=== PATIENT | female | born 1980 | race Caucasian/White ===

== ENCOUNTER 2020-05-25 05:30 | Day surgery (SDC) | payer BC ==
[2020-05-22 10:30] LABS: HEMOGLOBIN 14.3 g/dL (12.0-15.5); MEAN CORPUSCULAR HEMOGLOBIN 30.9 pg (27.0-33.4); MEAN CORPUSCULAR HGB CONC 34.9 g/dL (32.0-36.0); MEAN CORPUSCULAR VOLUME 88 fl (80-97); PLATELET COUNT 246 10^3/uL (150-450); RED BLOOD COUNT 4.64 10^6/uL (3.72-5.28); RED CELL DISTRIBUTION WIDTH 12.8 % (11.5-14.0); WHITE BLOOD COUNT 5.8 10^3/uL (4.0-10.5)
[2020-05-22 10:53] LABS: ANION GAP 7 (5-19); BLOOD UREA NITROGEN 16 mg/dL (7-20); CALCIUM 9.7 mg/dL (8.4-10.2); CARBON DIOXIDE 28 mmol/L (22-30); CHLORIDE 104 mmol/L (98-107); GLUCOSE 75 mg/dL (75-110); POTASSIUM 4.8 mmol/L (3.6-5.0)
[~2020-05-25 05:30] MED LIST: ACETAMINOPHEN 325 MG TABLET PO PRN; CEFAZOLIN 2 GM/D5W RTU 2 GM/50 ML RTUPB IV PRN; CELECOXIB 200 MG CAPSULE PO PRN; GABAPENTIN 100 MG CAPSULE PO PRN; LACTATED RINGERS 1000 ML IV PRN; LIDOCAINE 0.5% INJ-PF (5 MG/ML) 50 ML SDV SUBCUT PRN; ONDANSETRON HCL INJ/PF 4 MG/2 ML SDV IV PRN; OXYCODONE HCL SR 10 MG TABLET PO PRN; SCOPOLAMINE HYDROBROMIDE 1.5 MG PATCH.TD72 TD PRN; TRAMADOL HCL 50 MG TABLET PO PRN; TRANEXAMIC ACID INJ/PF 1,000 MG/10 ML SDV IV PRN; VANCOMYCIN HCL 1,000 MG in DEXTROSE 5%-WATER 250 ML IV PRN
[2020-05-25] MEDS ORDERED: ACETAMINOPHEN 325 MG TABLET ONE (06:19)
[2020-05-25] MEDS ORDERED: SCOPOLAMINE HYDROBROMIDE 1.5 MG PATCH.TD72 ONE (06:19)
[2020-05-25] MEDS ORDERED: CEFAZOLIN 2 GM/D5W RTU 2 GM/50 ML RTUPB IV ONE (06:19)
[2020-05-25] MEDS ORDERED: TRAMADOL HCL 50 MG TABLET ONE (06:19)
[2020-05-25] MEDS ORDERED: ONDANSETRON HCL INJ/PF 4 MG/2 ML SDV ONE ×2 (06:19→06:59)
[2020-05-25] MEDS ORDERED: CELECOXIB 200 MG CAPSULE ONE (06:19)
[2020-05-25] MEDS ORDERED: GABAPENTIN 100 MG CAPSULE ONE (06:20)
[2020-05-25] MEDS ORDERED: LIDOCAINE 2% INJ-PF (20 MG/ML) 10 ML AMPUL ONE (06:58)
[2020-05-25] MEDS ORDERED: MIDAZOLAM 2 MG/2 ML INJ ONE (06:59)
[2020-05-25] MEDS ORDERED: FENTANYL CITRATE INJ/PF 100 MCG/2 ML AMPUL ONE (06:59)
[2020-05-25] MEDS ORDERED: TRANEXAMIC ACID INJ/PF 1,000 MG/10 ML SDV ONE (06:59)
[2020-05-25] MEDS ORDERED: PROPOFOL INJ 200 MG/20 ML VIAL IV ONE (06:59)
[2020-05-25] MEDS ORDERED: LIDOCAINE 1% INJ-PF (10 MG/ML) 30 ML SDV ONE (07:09)
[2020-05-25] MEDS ORDERED: BUPIVACAINE HCL 0.25 % INJ/PF (2.5 MG/1 ML) 30 ML VIAL ONE (07:09)
[2020-05-25] MEDS ORDERED: VANCOMYCIN HCL INJ 1000 MG VIAL ONE (07:09)
[2020-05-25] MEDS ORDERED: KETOROLAC TROMETHAMINE INJ/PF 30 MG/1 ML SDV ONE (07:09)
[2020-05-25] MEDS ORDERED: OXYCODONE HCL SR 10 MG TABLET PO ONE (07:19)
[2020-05-25] MEDS ORDERED: DIPHENHYDRAMINE HCL 50 MG/ML VIAL IV PRN (08:04)
[2020-05-25] MEDS ORDERED: MEPERIDINE HCL/PF INJ 25 MG/1 ML DISP.SYRIN IV PRN (08:04)
[2020-05-25] MEDS ORDERED: PROMETHAZINE HCL INJ 25 MG/1 ML VIAL IV PRN ×2 (08:04)
[2020-05-25] MEDS ORDERED: FENTANYL CITRATE INJ/PF 100 MCG/2 ML AMPUL IV PRN ×3 (08:04)
[2020-05-25] MEDS ORDERED: OXYCODONE-ACETAMINOPHEN 5-325 MG TABLET PO PRN ×2 (08:04)
[2020-05-25] MEDS ORDERED: MORPHINE SULFATE 10 MG/ML INJ IV PRN ×2 (08:04→10:25)
[2020-05-25] MEDS ORDERED: VASOPRESSIN INJ 20 UNIT/1 ML VIAL ONE (09:06)
[2020-05-25] MEDS ORDERED: ALBUMIN HUMAN 12.5 GM/50 ML RTUINJ IV ONE (09:45)
--- NOTE | 2020-05-25 09:57 | Operative Report ---
Operative Report DATE OF SURGERY: 05/25/20 PREOPERATIVE DIAGNOSIS: Left hip severe primary osteoarthritis POSTOPERATIVE DIAGNOSIS: Left hip severe primary osteoarthritis OPERATION: Left total hip arthroplasty SURGEON: SAWYER MIXON JR ANESTHESIA: Spinal COMPLICATIONS: none ESTIMATED BLOOD LOSS: 400 PROCEDURE: Implants: [place] Accolade size 5 femoral stem with a 27 offset, a PSL size 50 cup, and a standard liner, a -2.5 neck length the 36 mm ceramic head BRIEF HISTORY: 39 year old female with severe degenerative arthritis of left hip, which has failed conservative treatment and has elected for a total hip arthroplasty. Risks include but are not limited to bleeding, infection, anesthesia, , injury to nerve or vessel, pain, scar, leg length inequality, dislocation, future surgery, and blood clots. Patient read through the pre-op counseling form and signed and consented for surgery on their left hip. OPERATIVE PROCEDURE: Patient was brought to the operating room on and underwent spinal anesthesia. 2 grams of Ancef and 1 g of vancomycin was given. After proper anesthesia was obtained, patient was positioned, padded, prepped, and draped in the usual sterile fashion on the operating room table. Appropriate time out was performed. An anterior approach to the hip was undertaken with meticulous hemostasis through the deep interval. A capsulectomy was performed followed by exposure of the femoral neck. The femoral neck was cut in line with the femoral broach and the femoral head was removed. The acetabulum was then exposed with three retractors in an atraumatic fashion. Soft tissue and osteophytes were removed. Medialization reaming was performed followed by anatomic reaming up to accept a 50 mm acetabulum. Wound was irrigated with dilute betadyne solution and the 50 mm acetabulum was impacted into correct position and stability checked by manipulating the impaction handle which rocked the pelvis. A standard liner was impacted into the shell with good stability. Potential impinging osteophytes were removed. Attention was then directed toward the femur, which was exposed with two retractors in an atraumatic fashion. A bone hook was placed to carefully perform releases along the superior capsule until the femur was safely delivered through the wound. A safe deposit box rental clerk was utilized followed by lateralization rasping and then broaching up to accept a 5 femur. With a 27 offset neck and a -2.5 head, stability was good in flexion and extension with near equal leg lengths. The real lateral offset femur was impacted into a copiously irrigated femoral canal. A 36 mm -2.5 head was impacted on a clean dry femoral taper. The hip was irrigated and reduced, further irrigation with antibiotic solution, betadine solution, then antibiotic solution. Bleeders were coagulated with bovie cautery. The fascia was then closed with number 2 Quill; the subcutaneous tissue closed with interrupted inverted 2-0 monocryl then running 2-0 monocryl subcuticular. Dermabond skin glue was applied followed by a silver dressing. All needle sponge and instrument counts were correct. Patient was awakened from sedation anesthesia and taken to recovery room in good condition. Thank you, Sawyer Mixon, DO
[2020-05-25] MEDS: FENTANYL CITRATE INJ/PF 100 MCG/2 ML AMPUL ONE ×3 (10:10→10:45)
[2020-05-25] MEDS ORDERED: OXYCODONE HCL IR 5 MG TABLET PO PRN ×2 (10:24)
[2020-05-25] MEDS ORDERED: TRAMADOL HCL 50 MG TABLET PO PRN (10:25)
[2020-05-25] MEDS ORDERED: PANTOPRAZOLE SODIUM 20 MG TABLET.DR PO PRN (10:31)
[2020-05-25] MEDS ORDERED: DIPHENHYDRAMINE HCL 25 MG CAPSULE PO PRN (10:31)
[2020-05-25] MEDS ORDERED: ZOLPIDEM TARTRATE 5 MG TABLET PO PRN (10:32)
[2020-05-25] MEDS ORDERED: DOCUSATE SODIUM 100 MG CAPSULE PO PRN (10:34)
[2020-05-25] MEDS ORDERED: ONDANSETRON 4 MG TAB.RAPDIS PO PRN (10:38)
--- NOTE | 2020-05-25 11:11 | RADIOLOGY REPORT (SQ) ---
EXAM DESCRIPTION: HIP LEFT AP/LATERAL IMAGES COMPLETED DATE/TIME: 05/25/2020 10:53 am REASON FOR STUDY: s/p left total hip M16.12 UNILATERAL PRIMARY OSTEOARTHRITIS, LEFT HIP COMPARISON: None. NUMBER OF VIEWS: Two view(s). TECHNIQUE: Digital radiographic images of the left hip post-procedure. LIMITATIONS: None. FINDINGS: BONES: No worrisome or unexpected findings post-procedure. DEVICE: Total hip replacement. Components of the device in appropriate location. SOFT TISSUES: No worrisome findings. Expected postoperative soft tissue changes. IMPRESSION: SATISFACTORY POSTOPERATIVE LEFT HIP. TECHNICAL DOCUMENTATION: JOB ID: [id number] 2010 [employer]- All Rights Reserved Reading location - IP/workstation name: [email or web address]
[2020-05-25 11:13] LABS: HEMATOCRIT 31.1 % (36.0-47.0); HEMOGLOBIN 10.8 g/dL (12.0-15.5); MEAN CORPUSCULAR HEMOGLOBIN 30.6 pg (27.0-33.4); MEAN CORPUSCULAR HGB CONC 34.6 g/dL (32.0-36.0); MEAN CORPUSCULAR VOLUME 89 fl (80-97); PLATELET COUNT 220 10^3/uL (150-450); RED BLOOD COUNT 3.51 10^6/uL (3.72-5.28); RED CELL DISTRIBUTION WIDTH 12.6 % (11.5-14.0)
[2020-05-25] MEDS ORDERED: NORMAL SALINE 1000 ML 1,000 ML IV ONE (11:30)
--- NOTE | 2020-05-25 12:08 | RADIOLOGY REPORT (SQ) ---
EXAM DESCRIPTION: NO CHG FLUORO; HIP IN OPERATING RM IMAGES COMPLETED DATE/TIME: 05/25/2020 9:58 am REASON FOR STUDY: LEFT TOTAL HIP ARTHROPLASTY ASSISTED WITH FLUORO IN OR COMPARISON: None. FLUOROSCOPY TIME: 0.1 minutes 4 Images saved to PACS LIMITATIONS: None. PROCEDURE: Left total hip arthroplasty. FINDINGS: Images from fluoro document the procedure. IMPRESSION: Left total hip arthroplasty. Refer to operative note for further information. COMMENT: PQRS 6045F: Fluoroscopy time of the procedure is documented in the report. TECHNICAL DOCUMENTATION: JOB ID: [id number] 2010 [employer] All Rights Reserved Reading location - IP/workstation name: [email or web address]
--- NOTE | 2020-05-25 12:08 | RADIOLOGY REPORT (SQ) ---
EXAM DESCRIPTION: NO CHG FLUORO; HIP IN OPERATING RM IMAGES COMPLETED DATE/TIME: 05/25/2020 9:58 am REASON FOR STUDY: LEFT TOTAL HIP ARTHROPLASTY ASSISTED WITH FLUORO IN OR COMPARISON: None. FLUOROSCOPY TIME: 0.1 minutes 4 Images saved to PACS LIMITATIONS: None. PROCEDURE: Left total hip arthroplasty. FINDINGS: Images from fluoro document the procedure. IMPRESSION: Left total hip arthroplasty. Refer to operative note for further information. COMMENT: PQRS 6045F: Fluoroscopy time of the procedure is documented in the report. TECHNICAL DOCUMENTATION: JOB ID: [id number] 2010 [employer]- All Rights Reserved Reading location - IP/workstation name: [email or web address]
[2020-05-25] MEDS ORDERED: CEFAZOLIN 2 GM/D5W RTU 2 GM/50 ML RTUPB IV SCH (14:00)
[2020-05-25] MEDS ORDERED: KETOROLAC TROMETHAMINE INJ/PF 30 MG/1 ML SDV IV SCH (14:00)
[2020-05-25] MEDS ORDERED: ACETAMINOPHEN 325 MG TABLET PO SCH (14:00)
[2020-05-25] MEDS ORDERED: PHENYLEPHRINE HCL INJ/PF 10 MG/1 ML SDV ONE (14:36)
[2020-05-25 16:22] VITALS: BP 90/48
[2020-05-25] MEDS: ALBUMIN HUMAN 12.5 GM/50 ML RTUINJ IV SCH (16:54)
[2020-05-25] MEDS ORDERED: GABAPENTIN 100 MG CAPSULE PO SCH (18:00)
[2020-05-26] MEDS ORDERED: CELECOXIB 200 MG CAPSULE PO SCH (10:00)
[2020-05-26] MEDS ORDERED: DULOXETINE HCL 40 MG PO SCH (10:00)
[2020-05-26] MEDS ORDERED: ASPIRIN 325 MG TABLET PO SCH (10:00)
[2020-05-26] MEDS ORDERED: DULOXETINE HCL 20 MG CAPSULE.DR PO SCH (10:00)
[2020-05-26] MEDS ORDERED: POLYETHYLENE GLYCOL 3350 POWDER 17 GM/1 PACKET PO SCH (10:00)
--- NOTE | 2020-05-29 09:59 | Discharge Summary ---
Discharge Summary (SDC) - Discharge Final Diagnosis: Left total hip arthroplasty Date of Surgery: 05/25/20 Discharge Date: 05/25/20 Condition: Stable Forms: Discharge POC-Adult Treatment or Instructions: Full details of postoperative instructions have been provided to the patient in the clinic. Additionally they should maintain their bandage in place for 5 to 7 days, and then changed to a dry dressing. They can take showers with this occlusive dressing but any further dressing should also be occlusive. No showers with the wound unprotected until cleared by me in the clinic. If the bandage falls off early or become saturated they can change as needed to another occlusive dressing. Referrals: NIKOLE MIXON JR, DO [ACTIVE PROVISIONAL STAFF] - 06/05/20 12:45 pm Respiratory Treatments at Home: Deep Breathing/Coughing Discharge Activity: Activity As Tolerated, Balance Activity w/Rest, No Driving, Keep Legs Elevated, No Lifting/Push/Pulling, Slowly Increase Activity, No tub bath, Walk Frequently Home Care Assistance: None Needed Activities Provided by Home Health Agency: Physical Therapy Adaptive Devices on Discharge: Rolling Walker, Bedside Commode Report the Following to Your Physician Immediately: Fever over 101 Degrees, Unusual Bleeding, Drainage-Yellow
== END 2020-05-25 18:39 | disposition home or self-care (01) ==
LOC: OROUT 05:30 → 4S 11:20 → OROUT 18:39
PROVIDERS: ATTEND Orthopaedic Surgery
DX: M16.12 Unilateral primary osteoarthritis, left hip (principal); Z79.899 Other long term (current) drug therapy; Z88.8 Allergy status to other drugs, medicaments and biological substances; F41.9 Anxiety disorder, unspecified; Z03.818 Encounter for observation for suspected exposure to other biological agents ruled out
CPT/HCPCS: 27130; 86900; 86901; 36415 ×2; 86850; 84703; 85027 ×2; 80048; 73502; 73501; 97110; 97116; 97163; 97530; 97166; 01214; C1776 ×4; U0003; P9047; J2250; J3010; J3490 ×4; J1885; J2270; J2370; J2405; J7060; J2704; J3370; J0690; C9803; 87635